=== PATIENT | male | born 2000 | race Caucasian/White ===

== ENCOUNTER 2023-08-02 20:05 | Emergency (ER) | payer OTHER | END 2023-08-02 20:26 | disposition home or self-care (01) | LOC: VM.ED 20:05 | DX: S16.1XXA Strain of muscle, fascia and tendon at neck level, initial encounter (principal); R51.9 Headache, unspecified; V89.2XXA Person injured in unspecified motor-vehicle accident, traffic, initial encounter | CPT/HCPCS: 99283; 99284 ==